=== PATIENT | male | born 1960 | race Caucasian/White ===

== ENCOUNTER 2016-05-28 09:28 | Emergency (ER) | payer OTHER ==
[~2016-05-28] VITALS: Ht 162.6 cm; Wt 96.2 kg
--- NOTE | 2016-05-28 09:57 | ED CARDIAC/CP/PALPITATIONS ---
History of Present Illness General Chief Complaint: Chest Pain Stated Complaint: CP AND R SHOULDER PAIN, SOB Source: patient Exam Limitations: no limitations Vital Signs & Intake/Output Vital Signs & Intake/Output Vital Signs Date Time Temp Pulse Resp B/P Pulse O2 O2 Flow FiO2 Ox Delivery Rate 05/28 1123 97 05/28 1123 97.7 82 16 144/84 97 Room Air 05/28 0934 99.6 91 18 133/89 96 Room Air Allergies Coded Allergies: amoxicillin (Severe, DIARRHEA 05/28/16) Uncoded Allergies: -CILLIANS (Severe, DIARRHEA 05/28/16) Reconcile Medications Albuterol Sulfate (Proventil Hfa) 90 MCG HFA.AER.AD 2 PUF INH Q4 cough Azithromycin (Zithromax) 250 MG TABLET 1 DP PO AD bronchitis 2 the first day followed by 1 for days 2-5 Brompheniramine/Pseudoephed/Dm (Bromfed Dm Cough Syrup) 2 MG-30 MG-10 MG/5 ML SYRUP 5-10 ML PO Q4-6 PRN PRN cough Cyclobenzaprine HCl 10 MG TABLET 1 TAB PO TID SPASMS Meloxicam (Mobic) 15 MG TABLET 1 TAB PO DAILY PAIN Triage Note: 56 Y/O MALE C/O L SIDED CHEST PAIN, UPPER BACK PAIN, NECK PAIN AND SOB; SYMPTOMS ONSET THIS AM. STATES HE THOUGHT HE WAS JUST SORE FROM SHOVELING BUT BECAME SOB THIS AM. DENIES FEVERS, CHILLS OR PRODUCTIVE COUGH, "IT HURTS TO COUGH". TEMP 99.6 EKG: SINUS, RATE 95 Triage Nurses Notes Reviewed? yes Onset: Abrupt Duration: day(s): (few) Timing: recent history Quality/Severity: moderate, severe HPI: 56-year-old male with no history of previous coronary disease comes into emergency room for multiple complaints. Patient reports that he's been sick for the past week with upper rest or symptoms runny nose congestion and coughing. Patient reports she's been experiencing some body aches as well. Patient reports that the left side of his neck and left shoulder has been sore for the past few days he thought it was attributed to recent shoveling. Patient reports that this morning he started with a cough and some pain in the left side of his chest with cough only. Patient denies any chest pain otherwise. He denies any shortness of breath to myself despite the triage note. Patient was concerned that he was possibly having walking pneumonia. Some intermittent chills at home. Denies any vomiting or diaphoresis. Denies any other associated symptoms currently. (RAMON MARS) Past History Travel History Traveled to [place] past 21 day No Medical History Any Pertinent Medical History? see below for history Neurological: NONE EENT: NONE Cardiovascular: NONE Respiratory: NONE Gastrointestinal: NONE Hepatic: NONE Renal: NONE Musculoskeletal: NONE Psychiatric: NONE Endocrine: NONE Blood Disorders: NONE Cancer(s): NONE PATIENT ACCOUNTS COORDINATOR/Reproductive: NONE Surgical History Surgical History: non-contributory Psychosocial History What is your primary language Icelandic Tobacco Use: Quit >30 days ago Family History Hx Contributory? No (RAMON MARS) Review of Systems Review of Systems Constitutional: Reports: see HPI. EENTM: Reports: see HPI. Respiratory: Reports: see HPI. Cardiovascular: Reports: no symptoms. GI: Reports: no symptoms. Genitourinary: Reports: no symptoms. Musculoskeletal: Reports: no symptoms. Skin: Reports: no symptoms. Neurological/Psychological: Reports: no symptoms. Hematologic/Endocrine: Reports: no symptoms. Immunologic/Allergic: Reports: no symptoms. All Other Systems: Reviewed and Negative (RAMON MARS) Physical Exam Physical Exam General Appearance: well developed/nourished, no apparent distress, alert, awake Head: atraumatic, normal appearance Eyes: Bilateral: normal appearance, EOMI. Ears, Nose, Throat: normal pharynx, normal ENT inspection, hearing grossly normal Neck: normal inspection, full range of motion Respiratory: normal breath sounds, no respiratory distress Cardiovascular: regular rate/rhythm Gastrointestinal: soft Back: normal inspection Extremities: normal inspection, normal range of motion, no edema Neurologic/Psych: awake, alert, oriented x 3, normal gait, normal mood/affect Skin: intact, normal color Core Measures ACS in differential dx? No Severe Sepsis Present: No Septic Shock Present: No (RAMON MARS) Progress Differential Diagnosis: AMI, aortic dissection, atrial fibrillation, cholecystitis, CHF/pulm edema, hyperkalemia, hypovolemia, hyperthyroid, myocarditis, pancreatitis, pericarditis, pneumonia, pneumothorax, pulmonary embolism, PUD/GERD, PVCs/PACs, respiratory failure, rib fracture, sepsis, unstable angina Plan of Care: Orders Procedure Date/time Status RAPID VIRAL INFLUENZA A 05/28 956 Complete TROPONIN LEVEL 05/28 956 Complete COMPREHENSIVE METABOLIC PANEL 05/28 956 Complete CBC WITHOUT DIFFERENTIAL 05/28 956 Complete EKG 05/28 929 Active Laboratory Tests 05/28/16 1012: Anion Gap 11, Estimated GFR > 60, BUN/Creatinine Ratio 16.3, Glucose 102 H, Calcium 9.4, Total Bilirubin 0.7, AST 39, ALT 60, Alkaline Phosphatase 92, Troponin I < 0.01, Total Protein 7.5, Albumin 4.3, Globulin 3.2, Albumin/ Globulin Ratio 1.3, CBC w Diff NO MAN DIFF REQ, RBC 5.33, MCV 85.6, MCH 28.6, RDW 13.4, MPV 8.1, Gran % 78.0 H, Lymphocytes % 11.1 L, Monocytes % 10.2 H, Eosinophils % 0.3, Basophils % 0.4, Absolute Granulocytes 11.2 H, Absolute Lymphocytes 1.6, Absolute Monocytes 1.5 H, Absolute Eosinophils 0, Absolute Basophils 0.1, PUBS MCHC 33.4 Microbiology 05/28 1011 NASOPHARYN: Influenza Virus A & B Rapid Smear - COMP Diagnostic Imaging: Viewed by Me: Radiology Read. Discussed w/RAD: Radiology Read. Radiology Impression: SERVICE DATE: 05/28/16 EXAM TYPE: RAD - XRY-CHEST XRAY, PA AND LATERAL EXAMINATION: XR CHEST CLINICAL INFORMATION: Cough, left- sided chest pain. COMPARISON: None TECHNIQUE: 2 views of the chest were obtained. FINDINGS: The cardiomediastinal silhouette is within normal limits. The lungs and pleural spaces appear clear. There is no evidence of pneumothorax or pulmonary edema. Included osseous structures appear largely unremarkable. IMPRESSION: Unremarkable examination. DICTATED BY: ROBBIE BALLARD MD DATE/TIME DICTATED:05/28/161034 VENEER MANUFACTURER:CIARAN DATE/TIME TRANSCRIBED:1034 Initial ED EKG: normal intervals, normal p-waves, normal QRS complex, normal sinus rhythm, rate (95) (RAMON MARS) Departure Departure Disposition: HOME OR SELF CARE Condition: Stable Clinical Impression Primary Impression: Bronchitis Secondary Impressions: Chest wall pain Additional Instructions: Take Mobic, Flexeril, Bromfed, albuterol, Z-Jah as prescribed. Follow-up with your primary care doctor. Return if any other concerns worsening symptoms. Please go over all results of today's visit with your primary care doctor. Contact your primary care doctor to let them know you were here in the emergency room. There may be nonspecific findings which may not be related to your visit today here in the emergency room but may require further evaluation and chronic monitoring by your primary care doctor. If you had a laceration today the chance of foreign body always remains. You should follow-up with your primary care doctor for recheck in 3-5 days for a wound check. If you had an x-ray done there is a chance that a fracture could have been missed on initial read and you should follow-up with your primary care doctor for repeat x-rays if symptoms persist. If your blood pressure was elevated here in the emergency room please have rechecked by her primary care doctor within the next 48 hours by your primary care doctor. If you were prescribed a narcotic here in the emergency room or any type of controlled substances you're not allowed to drive while taking this medication or operate any type of heavy machinery. Narcotics can make you feel lightheaded dizziness nausea and can cause constipation. You may need to pick up man a stool softener. Thank you for choosing [facility] emergency room. Please return to the emergency room immediately if you have any other concerns worsening of symptoms. Departure Forms: Customer Survey General Discharge Information Prescriptions: Current Visit Scripts Brompheniramine/Pseudoephed/Dm (Bromfed Dm Cough Syrup) 5-10 ML PO Q4-6 PRN PRN cough #120 ML Albuterol Sulfate (Proventil Hfa) 2 PUF INH Q4 #1 INHAL Azithromycin (Zithromax) 1 DP PO AD #6 TAB 2 the first day followed by 1 for days 2-5 Cyclobenzaprine HCl 1 TAB PO TID #20 TAB Meloxicam (Mobic) 1 TAB PO DAILY #20 TAB Comments 05/28/2016 11:42:06 AM Patient clinically looks well. Patient is nontoxic-appearing. Patient is in no apparent distress. Chest pain is only present with cough. Patient has reproducible left-sided neck pain and back pain that is more muscular in nature. Symptoms of bronchitis. Patient has no history of coronary disease. No active chest pain here in the emergency room. Patient does not appear to be in any type of distress. Case discussed with Dr. charles. Patient will be treated symptomatically. Return if any concerns worsening symptoms. Reevaluated multiple times. Patient understands and agrees with plan of care. Patient return if any other concerns worsening symptoms. (RAMON MARS) PA/IMPORT CLERK Co-Sign Statement Statement: ED Attending supervision documentation- [] I saw and evaluated the patient. I have also reviewed all the pertinent lab results and diagnostic results. I agree with the findings and the plan of care as documented in the PA's/IMPORT CLERK's documentation. x I have reviewed the ED Record and agree with the PA's/IMPORT CLERK's documentation. [] Additions or exceptions (if any) to the PAs/IMPORT CLERK's note and plan are summarized below: [] (JACOB CORONEL,ALICIA) Critical Care Note Critical Care Note Critical Care Time: non-applicable (RAMON MARS)
[2016-05-28 10:22] LABS: ABSOLUTE BASOPHIL COUNT 0.1 /CUMM (0.0-0.2); ABSOLUTE EOSINOPHIL COUNT 0 /CUMM (0.0-0.7); ABSOLUTE GRANULOCYTE CT 11.2 /CUMM (1.4-6.5); ABSOLUTE LYMPH COUNT 1.6 /CUMM (1.2-3.4); ABSOLUTE MONOCYTE COUNT 1.5 /CUMM (0.10-0.60); BASOPHIL % 0.4 % (0.0-2.0); EOSINOPHIL % 0.3 % (0-5); HEMATOCRIT 45.7 % (42-52); MEAN CORPUSCULAR HGB 28.6 PG (27.0-31.0); MEAN CORPUSCULAR HGB CONC 33.4 G/DL (33.0-37.0); MEAN CORPUSCULAR VOLUME 85.6 FL (80.0-94.0); MEAN PLATELET VOLUME 8.1 FL (7.4-10.4); PLATELET COUNT 278 /CUMM (130-400); RBC DISTRIBUTION WIDTH 13.4 % (11.5-14.5); RED BLOOD CELL CT 5.33 /CUMM (4.70-6.10); WHITE BLOOD CELL COUNT 14.4 /CUMM (4.8-10.8)
--- NOTE | 2016-05-28 10:39 | RADIOLOGY REPORT ---
EXAMINATION: XR CHEST CLINICAL INFORMATION: Cough, left-sided chest pain. COMPARISON: None TECHNIQUE: 2 views of the chest were obtained. FINDINGS: The cardiomediastinal silhouette is within normal limits. The lungs and pleural spaces appear clear. There is no evidence of pneumothorax or pulmonary edema. Included osseous structures appear largely unremarkable. IMPRESSION: Unremarkable examination.
[2016-05-28] MEDS ORDERED: ZITHROMAX250 M2 PO (11:10)
[2016-05-28] MEDS ORDERED: MOBIC15 M1 PO (11:10)
[2016-05-28] MEDS ORDERED: PROVENTIL HFA6.7 GM INH (11:10)
[2016-05-28] MEDS ORDERED: BROMFED DM COU118 M1 PO (11:10)
[2016-05-28] MEDS ORDERED: CYCLOBENZAPRINE10 M1 PO (11:10)
[2016-05-28 11:23] VITALS: BP 144/84
== END 2016-05-28 11:20 ==
LOC: ERH 09:28
PROVIDERS: Physician Assistant Medical
DX: J40 Bronchitis, not specified as acute or chronic (principal); R07.89 Other chest pain; Z87.891 Personal history of nicotine dependence
CPT/HCPCS: 87804; 87804-59; 93005; 93010